=== PATIENT | female | born 1980 | race American Indian/Alaskan Native ===

== ENCOUNTER 2016-12-11 13:28 | Emergency (ER) | payer MEDICAID ==
[2016-12-11 14:42] VITALS: BP 125/100
--- NOTE | 2016-12-11 14:59 | Emergency Department Report ---
Chief Complaint: Abdominal Pain Stated Complaint: VOMITING/ABD PAIN/MIGRAIN Time Seen by Provider: 12/11/16 14:54 - HPI History of Present Illness: 36 y/o female complain of abdominal pain with headache x 3 days .pt state that her kids current had a virus .pt denies any prior medical treatment . - ROS Review of Systems: per HPI - Exam Vital Signs: Vital Signs 12/11/16 14:38 Temperature 98.8 F Pulse Rate 86 Respiratory 18 Rate Blood Pressure 125/100 O2 Sat by Pulse 100 Oximetry Physical Exam: GENERAL: The patient is well-developed and well-nourished. Patient is in NAD. HENT: Normocephalic. Atraumatic. Patient has moist mucous membranes. Throat: No erythema, swelling or exudates. EYES: Extraocular motions are intact, PERRL NECK: Supple. No meningitic signs are noted. There is no adenopathy noted. CHEST/LUNGS: Clear to auscultation bilaterally. No wheezing, rales or rhonchi noted. There is no respiratory distress noted. HEART/CARDIOVASCULAR: Regular rate and rhythm. Normal S1 S2. No murmurs, rubs , clicks, or gallops. ABDOMEN: Abdomen is soft, nontender.. Bowel sounds normoactive. There is no abdominal distention. Negative rebound tenderness. : Deferred. SKIN: There is no rash. There is no edema. There is no diaphoresis. NEURO: The patient is A&Ox3. The patient has no focal neurologic deficits. MUSCULOSKELETAL: There is no tenderness or deformity. There is no limitation range of motion. PSYCH: Pt has appropriate mood and affect. MSE screening note: Focused history and physical exam performed. Due to findings the following was ordered: ED Disposition for MSE Condition: Stable Instructions: Abdominal Pain (ED)
[2016-12-11 15:41] LABS: Basophils % (Auto) 0.4 % (0.0-1.8); Eosinophils % (Auto) 1.1 % (0.0-4.3); Hematocrit 44.1 % (30.3-42.9); Hemoglobin 14.6 gm/dl (10.1-14.3); Mean Corpuscular HGB Conc 33 % (30-34); Mean Corpuscular Hemoglobin 31 pg (28-32); Mean Corpuscular Volume 93 fl (79-97); Platelet Count 278 K/mm3 (140-440); Red Blood Count 4.73 M/mm3 (3.65-5.03); Red Cell Distribution Width 16.2 % (13.2-15.2); White Blood Count 6.7 K/mm3 (4.5-11.0)
[2016-12-11 15:53] LABS: Anion Gap 20 mmol/L; BUN/Creatinine Ratio 13.75; Blood Urea Nitrogen 11 mg/dL (7-17); Calcium 9.3 mg/dL (8.4-10.2); Carbon Dioxide 25 mmol/L (22-30); Chloride 102.5 mmol/L (98-107); Glucose 96 mg/dL (65-100); Lipase 24 units/L (13-60); Potassium 4.1 mmol/L (3.6-5.0); Sodium 143 mmol/L (137-145)
[2016-12-11 16:07] LABS: Mucus,Urine 3+ /HPF
[2016-12-11 16:39] LABS: Bilirubin,Urine Negative (Negative); Ketones,Urine Negative (Negative)
[2016-12-11 16:40] LABS: Blood,Urine Negative (Negative); Leukocyte Esterase,Urine Negative (Negative); Nitrite,Urine Negative (Negative); Protein,Urine <15 mg/dL mg/dL (Negative); Urobilinogen,Urine < 0.2 mg/dL (<2.0)
--- NOTE | 2016-12-12 14:34 | ED Elopement Review ---
ED Pt Elopement review - Results review Lab results: Laboratory Tests 12/11/16 12/11/16 12/11/16 15:23 15:26 15:26 WBC 6.7 RBC 4.73 Hgb 14.6 H Hct 44.1 H MCV 93 MCH 31 MCHC 33 RDW 16.2 H Plt Count 278 Lymph % (Auto) 27.6 [place] % (Auto) 15.7 H Eos % (Auto) 1.1 Baso % (Auto) 0.4 Lymph # 1.8 [place] # 1.1 H Eos # 0.1 Baso # 0.0 Seg Neutrophils % 55.2 Seg Neutrophils # 3.7 Sodium 143 Potassium 4.1 Chloride 102.5 Carbon Dioxide 25 Anion Gap 20 BUN 11 Creatinine 0.8 Estimated GFR > 60 BUN/Creatinine Ratio 13.75 Glucose 96 Calcium 9.3 Lipase 24 HCG, Quant Urine Color Yellow Urine Turbidity Clear Urine pH 6.0 Ur Specific [place] 1.025 Urine Protein <15 mg/dl Urine Glucose (UA) Negative Urine Ketones Negative Urine Blood Negative Urine Nitrite Negative Ur Reducing Substances Not Reportable Urine Bilirubin Negative Urine Ictotest Not Reportable Urine Urobilinogen < 0.2 Ur Leukocyte Esterase Negative Urine WBC (Auto) 1.0 Urine RBC (Auto) 4.0 U Epithel Cells (Auto) 1.0 Urine Mucus 3+ 12/11/16 15:26 WBC RBC Hgb Hct MCV MCH MCHC RDW Plt Count Lymph % (Auto) [place] % (Auto) Eos % (Auto) Baso % (Auto) Lymph # [place] # Eos # Baso # Seg Neutrophils % Seg Neutrophils # Sodium Potassium Chloride Carbon Dioxide Anion Gap BUN Creatinine Estimated GFR BUN/Creatinine Ratio Glucose Calcium Lipase HCG, Quant < 2 Urine Color Urine Turbidity Urine pH Ur Specific [place] Urine Protein Urine Glucose (UA) Urine Ketones Urine Blood Urine Nitrite Ur Reducing Substances Urine Bilirubin Urine Ictotest Urine Urobilinogen Ur Leukocyte Esterase Urine WBC (Auto) Urine RBC (Auto) U Epithel Cells (Auto) Urine Mucus - Call Back decision Pt Call Back Decision: No action required
== END 2016-12-11 20:41 | disposition left against medical advice (07) ==
LOC: ED 13:28
DX: G43.909 Migraine, unspecified, not intractable, without status migrainosus (principal); R10.9 Unspecified abdominal pain; R11.10 Vomiting, unspecified; Z53.21 Procedure and treatment not carried out due to patient leaving prior to being seen by health care provider
CPT/HCPCS: 36415; 80048; 81001; 83690; 84702; 85025